=== PATIENT | female | born 1980 | race Caucasian/White ===

== ENCOUNTER → 2017-10-25 13:43 | Observation (INO) ==
[2017-10-25 13:45] LABS: Amphetamine Screen,Urine Negative ng/mL (Cutoff=1000); Barbiturate Screen,Urine Negative ng/mL (Cutoff=200); Benzodiazepines Screen,Urine Negative ng/mL (Cutoff=200); Cannabinoid Screen,Urine Negative ng/mL (Cutoff = 50); Cocaine Screen,Urine Negative ng/mL (Cutoff= 300); Opiate Screen,Urine Negative ng/mL (Cutoff=300); Phencyclidine Screen,Urine Negative ng/mL (Cutoff=25)
[2017-10-25 13:48] LABS: Bilirubin,Urine Negative (Negative); Blood,Urine Negative (Negative); Clarity,Urine Cloudy (Clear); Color,Urine Dark Yellow (Yellow); Glucose,Urine (UA) Normal (Normal); Ketones,Urine Trace mg/dL (Negative); Leukocyte Esterase,Urine Negative (Negative); Nitrite,Urine Negative (Negative); Protein,Urine Trace mg/dL (Neg-Trace); Specific Gravity,Urine > 1.030 (1.010-1.025); Urobilinogen,Urine Normal (Normal)
[2017-10-25 13:50] LABS: Bacteria,Urine Many per hpf (None-Few); Hyaline Casts,Urine Few per lpf (None-Few); Squamous Epithelial Cell,Urine Many per lpf (None-Few)
--- NOTE | 2017-10-25 13:50 | OB/GYN Progress Note ---
Date of Encounter: 10/25/17 Time of Encounter: 13:48 - Assessment and Plan (1) 23 weeks gestation of Current Visit: Yes Status: Acute (2) Round ligament pain Current Visit: Yes Status: Acute UA negative Cervix closed Discussed round ligament pain in with patient Discharge home with labor and when to return to triage precautions. Patient verbalized understanding Subjective - Subjective Interval history: 23+2 weeks gestation presented to triage for evaluation of lower abdominal pain. She should states she has been having intermittent lower abdominal pain worse when she goes from sitting to standing and changing position. Patient states pain goes through her groin area and into her vagina. Patient reports good movement, denies leaking of fluid. Patient states she did have some vaginal spotting yesterday after intercourse, but none noted today. Antepartum ROS: vaginal bleeding, movement normal, no loss of fluid, no contractions Objective - Vital Signs Vital Signs: Intake and Output 10/24/17 10/25/17 10/25/17 23:59 07:59 15:59 Other: Weight 93.1 kg Patient Weight 10/25/17 23:59 Weight 93.1 kg - Exam FHR: auscultation normal FHR comments: FHT 150s Auscultation: bilateral: normal Abdomen: Present: normal appearance, soft, gravid Uterus: Present: normal Cervical dilation: Closed
[2017-10-25 14:00] LABS: RBC,Urine 0-3 per hpf (0-3)
[2017-10-25 14:01] LABS: Calcium Oxalate Crystals,Urine Present
== END | disposition home or self-care (01) ==
LOC: 1NENULAB
PROVIDERS: ADMIT Obstetrics & Gynecology; ATTEND Obstetrics & Gynecology

== ENCOUNTER 2020-01-22 16:51 | Observation (INO) | END 2020-01-22 17:30 | disposition home or self-care (01) | LOC: 1NENULAB | PROVIDERS: ADMIT Advanced Practice Midwife; ATTEND Advanced Practice Midwife ==

== ENCOUNTER 2020-02-08 09:43 | Observation (INO) ==
[2020-02-08] MEDS ORDERED: Ringers Solution, Lactated 1,000 ML IVC ONE (09:50)
[2020-02-08] MEDS ORDERED: Ringers Solution, Lactated 1,000 ML IVC SCH (10:00)
[2020-02-08 10:17] VITALS: BP 108/62
== END 2020-02-08 13:15 | disposition home or self-care (01) ==
LOC: 1NENULAB
PROVIDERS: ADMIT Registered Nurse; ATTEND Registered Nurse

== ENCOUNTER 2020-02-21 06:00 | Inpatient (IN) ==
[2020-02-21] MEDS ORDERED: Naloxone 0.4 MG/ML INJ IVP PRN (06:32)
[2020-02-21] MEDS ORDERED: Metoclopramide 10 MG/2 ML VIAL IVP PRN (06:32)
[2020-02-21] MEDS ORDERED: *HR* FentaNYL (PF) 100 MCG/2 ML VIAL IVP PRN (06:32)
[2020-02-21] MEDS ORDERED: Lidocaine 1% 20 ML MDV INFILT PRN (06:32)
[2020-02-21] MEDS ORDERED: Famotidine 20 MG/2 ML VIAL IVP PRN (06:32)
[2020-02-21] MEDS ORDERED: Ondansetron 4 MG/2 ML VIAL IVP PRN (06:32)
[2020-02-21] MEDS ORDERED: Ringers Solution, Lactated 1,000 ML IVC SCH (06:45)
[2020-02-21 07:07] LABS: Amphetamine Screen,Urine Negative ng/mL (Cutoff=1000); Barbiturate Screen,Urine Negative ng/mL (Cutoff=200); Benzodiazepines Screen,Urine Negative ng/mL (Cutoff=300); Cannabinoid Screen,Urine Negative ng/mL (Cutoff = 50); Cocaine Screen,Urine Negative ng/mL (Cutoff= 300); Opiate Screen,Urine Negative ng/mL (Cutoff=300); Phencyclidine Screen,Urine Negative ng/mL (Cutoff=25)
[2020-02-21 07:09] LABS: Basophils % 0.2 %; Eosinophils % 0.3 %; Hematocrit 38.9 % (35.3-44.9); Immature Granulocytes % 0.4 % (0-4); Lymphocytes # 1.7 K/mcL (0.6-4.6); Lymphocytes % 17.3 %; Mean Corpuscular HGB Conc 33.4 g/dL (31.6-35.5); Mean Corpuscular Hemoglobin 29.9 pg (28.0-33.3); Mean Corpuscular Volume 89.4 fL (83.0-100.0); Mean Platelet Volume 11.2 fL (9.4-12.4); Monocytes # 0.5 K/mcL (0.0-1.3); Monocytes % 5.2 %; Neutrophils # 7.6 K/mcL (1.6-8.9); Platelet Count 252 K/mcL (140-400); Red Blood Count 4.35 M/mcL (3.82-4.97); Red Cell Distribution Width 13.3 % (11.5-14.5); Segmented Neutrophils % 76.6 %
[2020-02-21] MEDS ORDERED: Oxytocin 20 units/ LR 1000 mL 20 UNIT/1,000 ML BAG IVC SCH (08:00)
[2020-02-21] MEDS ORDERED: Oxytocin 20 units/ LR 1000 mL 20 UNIT/1,000 ML BAG IVC ONE (08:01)
[2020-02-21] MEDS ORDERED: EPHEDrine 50 MG/ML VIAL IVP PRN (08:22)
[2020-02-21] MEDS ORDERED: Epidural Premix (fent/bupiv) 110 ML EP SCH (08:30)
[2020-02-21] MEDS ORDERED: Lidocaine/EPI 1:200k 2% PF 20 ML VIAL ONE (16:36)
[2020-02-21] MEDS ORDERED: Sodium Bicarbonate 50 MEQ/50 ML VIAL ONE (16:36)
[2020-02-22] MEDS ORDERED: Benzocaine/Menthol 56 GM AEROSOL SPRAY TP PRN (00:10)
[2020-02-22] MEDS ORDERED: Ibuprofen 600 MG TABLET PO PRN (00:10)
[2020-02-22] MEDS ORDERED: Measles/Mumps/Rubella Vacc 0.5 ML VIAL SQ PRN (00:10)
[2020-02-22] MEDS ORDERED: Rho Immune Globulin 1,500 UNIT SYRINGE IM PRN (00:10)
[2020-02-22] MEDS ORDERED: Oxytocin 20 units/ LR 1000 mL 20 UNIT/1,000 ML BAG IVC SCH (00:10)
[2020-02-22] MEDS: Acetaminophen 325 MG TABLET PO PRN ×2 (06:14→15:49)
[2020-02-22] MEDS ORDERED: Famotidine 20 MG TABLET PO SCH (09:00)
[2020-02-22] MEDS ORDERED: Prenatal Vit/FA 1 EACH TABLET PO SCH (09:00)
[2020-02-22 21:01] VITALS: BP 120/84
== END 2020-02-22 23:40 | disposition home or self-care (01) | DRG 560 ==
LOC: 1NENULAB 06:30 → 1NENUOBS 02-22 01:12
PROVIDERS: ADMIT Registered Nurse; ATTEND Registered Nurse

== ENCOUNTER 2021-07-30 03:30 | Inpatient (IN) ==
[2021-07-30] MEDS ORDERED: Lidocaine 1% 20 ML MDV INFILT PRN (03:39)
[2021-07-30] MEDS ORDERED: *HR* Nalbuphine 10 MG/ML AMPUL IV PRN (03:39)
[2021-07-30] MEDS ORDERED: Naloxone 0.4 MG/ML INJ IVP PRN (03:39)
[2021-07-30] MEDS ORDERED: Azithromycin 500 MG in 0.9 % Sodium Chloride 250 ML IVPB PRN (03:39)
[2021-07-30] MEDS ORDERED: Famotidine 20 MG/2 ML VIAL IVP PRN (03:39)
[2021-07-30] MEDS ORDERED: Metoclopramide 10 MG/2 ML VIAL IVP PRN (03:39)
[2021-07-30] MEDS ORDERED: Ringers Solution, Lactated 1,000 ML IVC SCH (03:45)
[2021-07-30] MEDS ORDERED: miSOPROStoL 25 MCG TABLET PO PRN (04:00)
[2021-07-30 04:57] LABS: Basophils % 0.2 %; Eosinophils # 0.1 K/mcL (0.0-0.6); Eosinophils % 0.5 %; Hematocrit 34.6 % (35.3-44.9); Hemoglobin 11.5 g/dL (11.5-15.4); Immature Granulocytes % 0.6 % (0-4); Lymphocytes % 15.1 %; Mean Corpuscular HGB Conc 33.2 g/dL (31.6-35.5); Mean Corpuscular Hemoglobin 29.7 pg (28.0-33.3); Mean Corpuscular Volume 89.4 fL (83.0-100.0); Mean Platelet Volume 11.1 fL (9.4-12.4); Monocytes # 0.8 K/mcL (0.0-1.3); Neutrophils # 10.3 K/mcL (1.6-8.9); Platelet Count 260 K/mcL (140-400); Red Blood Count 3.87 M/mcL (3.82-4.97); Red Cell Distribution Width 13.9 % (11.5-14.5); Segmented Neutrophils % 77.6 %; White Blood Count 13.2 K/mcL (4.3-11.1)
[2021-07-30 05:06] LABS: Amphetamine Screen,Urine Negative ng/mL (Cutoff=1000); Barbiturate Screen,Urine Negative ng/mL (Cutoff=200); Benzodiazepines Screen,Urine Negative ng/mL (Cutoff=200); Cannabinoid Screen,Urine Negative ng/mL (Cutoff = 50); Cocaine Screen,Urine Negative ng/mL (Cutoff= 300); Opiate Screen,Urine Negative ng/mL (Cutoff=300); Phencyclidine Screen,Urine Negative ng/mL (Cutoff=25)
[2021-07-30 05:38] LABS: Influenza A PCR Negative (Negative); Influenza B PCR Negative (Negative); Resp. Syncytial Virus PCR Negative (Negative)
[2021-07-30 05:39] LABS: SARS-CoV-2 by PCR (In House) Negative (Negative)
[2021-07-30] MEDS ORDERED: EPHEDrine 50 MG/ML VIAL IVP PRN (06:35)
[2021-07-30] MEDS ORDERED: Oxytocin 20 units/ LR 1000 mL 20 UNIT/1,000 ML BAG IVC SCH (10:45)
[2021-07-30] MEDS: Epidural Premix (fent/bupiv) 110 ML EP SCH ×2 (11:06→17:27)
[2021-07-30] MEDS ORDERED: Ropivacaine/PF 0.2% 20 ML VIAL ONE (18:26)
[2021-07-30] MEDS ORDERED: *HR* FentaNYL (PF) 100 MCG/2 ML VIAL ONE (18:27)
[2021-07-30] MEDS ORDERED: Ondansetron 4 MG/2 ML VIAL IVP PRN (23:44)
[2021-07-31] MEDS ORDERED: Rho Immune Globulin 1,500 UNIT SYRINGE IM PRN (00:21)
[2021-07-31] MEDS ORDERED: Oxytocin 20 units/ LR 1000 mL 20 UNIT/1,000 ML BAG IVC SCH (00:21)
[2021-07-31] MEDS ORDERED: Ondansetron ODT 4 MG TAB.RAPDIS SL PRN (00:21)
[2021-07-31] MEDS ORDERED: Benzocaine/Menthol 56 GM AEROSOL SPRAY TP PRN (00:21)
[2021-07-31] MEDS ORDERED: Lanolin 7 G OINT...G. TP PRN (00:21)
[2021-07-31] MEDS: Ibuprofen 600 MG TABLET PO SCH ×3 (01:15→16:51)
[2021-07-31] MEDS: Acetaminophen 325 MG TABLET PO SCH ×3 (01:15→16:51)
[2021-07-31 02:28] VITALS: O2SAT 98
[2021-07-31] MEDS ORDERED: Moderna Covid-19 Vaccine 100MCG/0.5mL IM ONE (07:46)
[2021-07-31] MEDS ORDERED: Prenatal Vit/FA 1 EACH TABLET PO SCH (09:00)
[2021-07-31 14:39] VITALS: PULSE 76; TEMP 97.8
[2021-07-31 19:36] VITALS: BP 102/65
== END 2021-07-31 22:05 | disposition home or self-care (01) | DRG 560 ==
LOC: 1NENULAB 03:30 → 1NENUOBS 07-31 00:28
PROVIDERS: ADMIT Advanced Practice Midwife; ATTEND Advanced Practice Midwife

== ENCOUNTER 2021-08-15 09:52 | Observation (INO) ==
[2021-08-15] MEDS ORDERED: 0.9 % Sodium Chloride 500 ML IVC ONE (10:17)
[2021-08-15 11:05] LABS: Hematocrit 38.1 % (35.3-44.9); Hemoglobin 12.9 g/dL (11.5-15.4); Mean Corpuscular HGB Conc 33.9 g/dL (31.6-35.5); Mean Corpuscular Volume 88.6 fL (83.0-100.0); Mean Platelet Volume 10.7 fL (9.4-12.4); Platelet Count 394 K/mcL (140-400); Red Cell Distribution Width 12.9 % (11.5-14.5); White Blood Count 5.2 K/mcL (4.3-11.1)
[2021-08-15 11:32] LABS: Alanine Aminotransferase 11 Units/L (7-52); Albumin/Globulin Ratio 1.4 (1.1-2.2); Alkaline Phosphatase 84 Units/L (34-104); Aspartate Amino Transferase 11 Units/L (13-39); BUN/Creatinine Ratio 14 (6-26); Bilirubin,Direct 0.1 mg/dL (0.0-0.2); Bilirubin,Indirect 0.2 mg/dL (0.0-1.0); Bilirubin,Total 0.3 mg/dL (0.3-1.0); Blood Urea Nitrogen 11 mg/dL (6-20); Calcium 8.9 mg/dL (8.6-10.3); Carbon Dioxide 27 mEq/L (23-29); Chloride 105 mEq/L (98-107); Globulin 2.8 g/dL (2.4-3.5); Glucose 95 mg/dL (70-105); Lactate Dehydrogenase 174 Units/L (140-271); Osmolality,Calculated 291 (280-300); Potassium 3.6 mEq/L (3.5-5.1); Sodium 141 mEq/L (136-145); Total Protein 6.8 g/dL (6.4-8.9); Uric Acid 5.4 mg/dL (2.3-7.6); eGFR For African Americans > 60 (> 60); eGFR For Non-African Americans > 60 (> 60)
[2021-08-15] MEDS ORDERED: Magnesium Sulfate 4 GM in 0.9 % Sodium Chloride 100 ML IVPB ONE (11:32)
[2021-08-15] MEDS ORDERED: NIFEdipine Immed Rel 10 MG CAPSULE PO STA (11:34)
[2021-08-15 11:50] LABS: Bacteria,Urine Few per hpf (None-Few); Bilirubin,Urine Negative (Negative); Blood,Urine Moderate (Negative); Clarity,Urine Clear (Clear); Color,Urine Colorless (Yellow); Glucose,Urine (UA) Normal (Normal); Ketones,Urine Negative (Negative); Leukocyte Esterase,Urine Moderate (Negative); Nitrite,Urine Negative (Negative); PH,Urine 7.5 pH Units (5.0-8.0); Protein,Urine Negative (Neg-Trace); Specific Gravity,Urine 1.009 (1.010-1.025); Squamous Epithelial Cell,Urine Few per hpf (None-Few); Urobilinogen,Urine Normal (Normal)
[2021-08-15] MEDS ORDERED: Ringers Solution, Lactated 1,000 ML IVC SCH (12:45)
[2021-08-15] MEDS ORDERED: Calcium Gluconate 1,000 MG/10 ML VIAL IVP PRN (12:48)
[2021-08-15] MEDS ORDERED: Ibuprofen 600 MG TABLET PO PRN (12:50)
[2021-08-15] MEDS: Magnesium Sulf 20 gm/SW 500mL 20 GM/500 ML IV.SOLN IVC SCH ×2 (13:35→23:41)
[2021-08-16 05:51] LABS: Basophils # 0.1 K/mcL (0.0-0.2); Basophils % 0.9 %; Eosinophils # 0.1 K/mcL (0.0-0.6); Eosinophils % 1.9 %; Hematocrit 36.2 % (35.3-44.9); Hemoglobin 11.8 g/dL (11.5-15.4); Immature Granulocytes % 0.4 % (0-4); Lymphocytes # 1.3 K/mcL (0.6-4.6); Lymphocytes % 23.4 %; Mean Corpuscular HGB Conc 32.6 g/dL (31.6-35.5); Mean Corpuscular Hemoglobin 28.9 pg (28.0-33.3); Mean Corpuscular Volume 88.5 fL (83.0-100.0); Mean Platelet Volume 10.3 fL (9.4-12.4); Monocytes # 0.4 K/mcL (0.0-1.3); Monocytes % 6.7 %; Neutrophils # 3.8 K/mcL (1.6-8.9); Platelet Count 369 K/mcL (140-400); Red Blood Count 4.09 M/mcL (3.82-4.97); Red Cell Distribution Width 12.8 % (11.5-14.5); Segmented Neutrophils % 66.7 %; White Blood Count 5.7 K/mcL (4.3-11.1)
[2021-08-16 06:10] LABS: Alanine Aminotransferase 9 Units/L (7-52); Aspartate Amino Transferase 10 Units/L (13-39); BUN/Creatinine Ratio 10 (6-26); Blood Urea Nitrogen 7 mg/dL (6-20); Lactate Dehydrogenase 167 Units/L (140-271); Uric Acid 4.9 mg/dL (2.3-7.6); eGFR For African Americans > 60 (> 60); eGFR For Non-African Americans > 60 (> 60)
[2021-08-16 08:11] VITALS: TEMP 97.6; O2SAT 93
[2021-08-16] MEDS: Magnesium Sulf 20 gm/SW 500mL 20 GM/500 ML IV.SOLN IVC SCH (09:06)
[2021-08-16 11:14] VITALS: BP 134/89; PULSE 89
== END 2021-08-16 12:36 | disposition left against medical advice (07) ==
LOC: EMEROOARM 09:52 → 1NENUOBS 09:52 → 1NENUPED 21:22
PROVIDERS: ADMIT Obstetrics & Gynecology; ATTEND Obstetrics & Gynecology